=== PATIENT | female | born 1995 | race Caucasian/White ===

== ENCOUNTER 2017-11-01 15:33 | Emergency (ER) | payer OTHER ==
[~2017-11-01] VITALS: Wt 64.9 kg
[~2017-11-01 15:33] MED LIST: 'PARAFON FORTE500 M1 PO; ALAVERT10 MG PO; BACTRIM DS 8001 TA1 PO; BENADRYL25 MG PO; BENTYL10 MG PO; CIPROFLOXACIN500 MG PO; CLEOCIN150 MG PO; DICLEGIS DR 101 EACH PO; FLOVENT 220 M220 MCG INH; HYDROCODONE BIT1 T11 PO; KEFLEX500 M1 PO; KENALOG 0.1% OI15 GM PO; MACROBID100 M1 PO; MOTRIN400 MG PO; MOTRIN800 MG PO; NAPROSYN500 MG PO; NORCO 5-325 TA1 EACH PO; PENICILLIN VK500 MG PO; PREDNICOT20 MG PO; PREDNISONE10 MG PO; PROMETHAZINE25 M1 PO; ROXICET 325 MG/55 ML PO; SPRINTEC 35 MCG1 TA1 PO; TAMIFLU75 MG PO; VISTARIL25 MG PO; ZOFRAN ODT4 MG PO; ZOFRAN ODT4 MG SL; albuterol INH
[2017-11-01] MEDS ORDERED: ZOFRAN ODT4 MG SL (16:20)
== END 2017-11-01 16:26 | disposition home or self-care (01) ==
LOC: ED 15:33
DX: K52.9 Noninfective gastroenteritis and colitis, unspecified (principal); Z88.8 Allergy status to other drugs, medicaments and biological substances; Z88.5 Allergy status to narcotic agent; Z90.89 Acquired absence of other organs

== ENCOUNTER 2018-03-03 20:48 | Emergency (ER) | payer OTHER ==
[~2018-03-03] VITALS: Ht 152.4 cm; Wt 61.7 kg
[2018-03-03] MEDS ORDERED: PRENATAL VITAM1 EAC4 PO (22:14)
== END 2018-03-03 22:22 | disposition home or self-care (01) ==
LOC: ED 20:48
DX: Z32.01 Encounter for pregnancy test, result positive (principal); Z90.89 Acquired absence of other organs; Z79.899 Other long term (current) drug therapy; Z88.6 Allergy status to analgesic agent; Z88.5 Allergy status to narcotic agent

== ENCOUNTER → 2018-06-13 | Outpatient (CLI) | payer OTHER ==
[~2018-06-13] MED LIST changes: +PRENATAL VITAM1 EAC4 PO
== END | disposition home or self-care (01) ==
LOC: US 10:48
DX: Z03.79 Encounter for other suspected maternal and fetal conditions ruled out (principal); Z3A.19 19 weeks gestation of pregnancy

== ENCOUNTER 2019-06-21 01:04 | Emergency (ER) | payer OTHER ==
[~2019-06-21] VITALS: Ht 152.4 cm; Wt 63.0 kg
[2019-06-21] MEDS ORDERED: KENALOG 0.1%80 GM T (02:12)
== END 2019-06-21 02:39 | disposition home or self-care (01) ==
LOC: ED 01:04
DX: R21 Rash and other nonspecific skin eruption (principal); Z88.6 Allergy status to analgesic agent; Z79.899 Other long term (current) drug therapy

== ENCOUNTER 2020-01-21 19:36 | Emergency (ER) | payer OTHER ==
[~2020-01-21] VITALS: Ht 152.4 cm; Wt 52.6 kg
[~2020-01-21 19:36] MED LIST changes: +KENALOG 0.1%80 GM T
[2020-01-21] MEDS ORDERED: AMOXICILLIN500 M3 PO (20:44)
== END 2020-01-21 20:36 | disposition home or self-care (01) ==
LOC: ED 19:36
DX: J02.9 Acute pharyngitis, unspecified (principal); J45.909 Unspecified asthma, uncomplicated; K21.9 Gastro-esophageal reflux disease without esophagitis; Z88.6 Allergy status to analgesic agent; Z79.899 Other long term (current) drug therapy

== ENCOUNTER 2020-01-27 20:38 | Emergency (ER) | payer OTHER ==
[~2020-01-27 20:38] MED LIST changes: +AMOXICILLIN500 M3 PO
[2020-01-27 21:14] LABS: BILIRUBIN NEGATIVE (NEGATIVE); BLOOD TRACE-INTACT (NEGATIVE); CLARITY SL CLOUDY (CLEAR); COLOR YELLOW (YELLOW); GLUCOSE NEGATIVE (NEGATIVE); KETONE TRACE (NEGATIVE); NITRITE NEGATIVE (NEGATIVE); UROBILINOGEN 0.2 E.U./dl (0.2-1.0)
[2020-01-27 21:18] LABS: LEUKO ESTERASE NEGATIVE (NEGATIVE)
[2020-01-27 21:26] LABS: BACTERIA 1+; EPITHELIAL CELLS 35-40
[2020-01-27 21:29] LABS: HEMATOCRIT 34.5 % (37.0-47.0); HEMOGLOBIN 11.8 g/dl (12.0-16.0); MEAN CELL VOLUME 88.5 fl (81.0-99.0); MEAN CORPUSCULAR HGB 30.3 pg (27.0-31.0); MEAN CORPUSCULAR HGB CONC 34.2 g/dl (33.0-37.0); MEAN PLATELET VOLUME 10.2 fl (9.6-12.3); PLATELET COUNT AUTOMATED 305 10*3/uL (130-400); RED CELL DISTRI WIDTH 13.5 % (0-14.5); WHITE BLOOD COUNT 15.7 10*3/uL (4.8-10.8)
[2020-01-27 21:44] LABS: ALBUMIN 2.9 gm/dl (3.1-4.5); ALKALINE PHOSPHATASE 132 U/L (45-117); BUN 14 mg/dl (7-24); CHLORIDE 105 mmol/L (98-107); CREATININE 0.74 mg/dL (0.55-1.02); LIPASE 31 U/L (73-393); POTASSIUM 3.4 mmol/L (3.5-5.1); SGOT/AST 9 IU/L (3-35); SGPT/ALT 21 U/L (12-78); SODIUM 135 mmol/L (136-145); TOTAL PROTEIN 6.9 gm/dL (6.4-8.2)
[2020-01-27 21:47] LABS: PLATELET SUFFICIENCY NORMAL (NORMAL); TOTAL CELLS COUNTED 100 #CELLS
[2020-01-27 21:48] LABS: BURR CELLS FEW
[2020-01-27 21:49] LABS: BETA-HCG, QUANT < 1.0 mIU/mL (1-3)
== END 2020-01-28 00:45 | disposition short-term general hospital (02) ==
LOC: ED 20:38
PROVIDERS: Emergency Medicine Emergency Medical Services
DX: N73.3 Female acute pelvic peritonitis (principal); D72.829 Elevated white blood cell count, unspecified; E87.6 Hypokalemia; R79.82 Elevated C-reactive protein (CRP); Z88.6 Allergy status to analgesic agent

== ENCOUNTER 2020-09-14 13:07 | Emergency (ER) | payer OTHER ==
[2020-09-14] MEDS ORDERED: TESSALON PERLE100 MG PO (15:01)
== END 2020-09-14 15:04 | disposition home or self-care (01) ==
LOC: ED 13:07
DX: J06.9 Acute upper respiratory infection, unspecified (principal); J45.909 Unspecified asthma, uncomplicated; K21.9 Gastro-esophageal reflux disease without esophagitis

== ENCOUNTER → 2020-12-20 | Outpatient (CLI) | payer OTHER ==
[~2020-12-20] MED LIST changes: +TESSALON PERLE100 MG PO
== END | disposition home or self-care (01) ==
LOC: COVID19 13:54
PROVIDERS: ATTEND Family Medicine
DX: Z20.822 Contact with and (suspected) exposure to COVID-19 (principal)

== ENCOUNTER → 2021-03-07 | Outpatient (CLI) | payer OTHER | END | disposition home or self-care (01) | LOC: COVID19 12:30 | PROVIDERS: ATTEND Family Medicine | DX: R50.9 Fever, unspecified (principal); Z20.822 Contact with and (suspected) exposure to COVID-19 ==

== ENCOUNTER → 2021-03-19 | Outpatient (CLI) | payer OTHER | END | disposition home or self-care (01) | LOC: RAD 09:07 | PROVIDERS: ATTEND Family Medicine | DX: J40 Bronchitis, not specified as acute or chronic (principal) ==

== ENCOUNTER → 2023-05-14 | Outpatient (CLI) | payer OTHER ==
[2023-05-14 14:26] LABS: BASO # 0.1 10*3/uL (0.0-0.1); BASO % 1.8 % (0.0-1.0); EOS # 0.1 10*3/uL (0.0-0.4); EOS % 1.3 % (1.0-4.0); HEMATOCRIT 39.5 % (37.0-47.0); LYMPH # 1.5 10*3/uL (1.3-4.4); LYMPH % 33.3 % (27.0-41.0); MEAN CORPUSCULAR HGB 27.3 pg (27.0-31.0); MEAN CORPUSCULAR HGB CONC 32.9 g/dl (33.0-37.0); MEAN PLATELET VOLUME 9.6 fl (9.6-12.3); MONO # 0.4 10*3/uL (0.1-1.0); MONO % 7.9 % (3.0-9.0); NEUT # 2.5 10*3/uL (2.3-7.9); NEUT % 55.5 % (47.0-73.0); PLATELET COUNT AUTOMATED 332 10*3/uL (130-400); RED BLOOD COUNT 4.76 10*6/uL (4.10-5.10); RETICULOCYTE % 1.31 % (0.50-2.50); WHITE BLOOD COUNT 4.5 10*3/uL (4.8-10.8)
[2023-05-14 14:34] LABS: BILIRUBIN Negative (Negative); BLOOD Negative (Negative); CLARITY Cloudy (Clear); COLOR Yellow (Yellow); GLUCOSE Negative (Negative); KETONE Trace (Negative); LEUKO ESTERASE 2+ (Negative); NITRITE Negative (Negative); PH 6.5 (4.5-8.0); SPECIFIC GRAVITY >= 1.030 (1.001-1.030)
[2023-05-14 14:50] LABS: BACTERIA 2+; WBC 21-30 wbc/hpf (0-5)
[2023-05-14 14:51] LABS: MUCOUS 2+
[2023-05-14 14:59] LABS: ALKALINE PHOSPHATASE 95 U/L (46-116); BUN 12 mg/dl (9-23); CHLORIDE 106 mmol/L (98-107); CHOLESTEROL 129 mg/dL (<200); GAMMA GLUTAMYL TRANSPEPTIDASE 11 U/L (0-73); LDL CHOLESTEROL 68 mg/dL (9-159); POTASSIUM 3.6 mmol/L (3.4-5.1); SGPT/ALT 12 U/L (10-49); T3 UPTAKE 21.7 % (22.4-36.7); THYROID STIM HORMONE (HS) 0.812 uIU/ml (0.550-4.780); THYROXINE (T4) TOTAL 5.9 ug/dl (4.5-10.9); TOTAL PROTEIN 7.5 gm/dL (6.0-8.0); TRIGLYCERIDES 82 mg/dl (<150)
[2023-05-14 15:13] LABS: VITAMIN D, 25-HYDROXY 20.4 ng/mL (30-100)
[2023-05-17 13:06] LABS: ANTI-DSDNA ANTIBODIES 4 IU/mL (0-9)
== END | disposition home or self-care (01) ==
LOC: LAB 14:00
PROVIDERS: ATTEND Family Medicine
DX: E78.5 Hyperlipidemia, unspecified (principal); E55.9 Vitamin D deficiency, unspecified; R79.89 Other specified abnormal findings of blood chemistry; R53.83 Other fatigue; R74.8 Abnormal levels of other serum enzymes; R06.02 Shortness of breath